=== PATIENT | female | born 1970 | race Caucasian/White ===

== ENCOUNTER 2023-02-12 18:54 | Emergency (ER) | payer MEDICAID ==
[~2023-02-12] VITALS: Ht 160 cm; Wt 117.5 kg
[2023-02-12 19:10] VITALS: O2SAT 100
[2023-02-12] MEDS ORDERED: HYDR25TA MT (22:22)
[2023-02-12] MEDS ORDERED: AMLO5TAB88 MT (22:22)
[2023-02-12 22:46] VITALS: BP 171/98; PULSE 98; RESP 16; TEMP 98.2
== END 2023-02-12 22:48 | disposition home or self-care (01) ==
LOC: ER 18:54
DX: R51.9 Headache, unspecified (principal); I10 Essential (primary) hypertension; Z98.890 Other specified postprocedural states
CPT/HCPCS: 99283

== ENCOUNTER 2023-02-28 15:15 | Emergency (ER) | payer MEDICAID ==
[~2023-02-28] VITALS: Ht 165.1 cm; Wt 104.0 kg
[~2023-02-28 15:15] MED LIST: AMLO5TAB88 MT; HYDR25TA MT
[2023-02-28 15:33] VITALS: TEMP 98.6; O2SAT 97
[2023-02-28] MEDS ORDERED: AMLODIPINE 5MG TABLET PO ONE (16:00)
[2023-02-28 16:23] LABS: CLARITY URINE CLEAR (CLEAR); COLOR URINE YELLOW (YELLOW); GLUCOSE URINE NEGATIVE (NEGATIVE); KETONES URINE NEGATIVE (NEGATIVE); LEUKOCYTE ESTERASE URINE NEGATIVE (NEGATIVE); NITRITE URINE NEGATIVE (NEGATIVE); OCCULT BLOOD URINE NEGATIVE (NEGATIVE); PROTEIN URINE NEGATIVE (NEGATIVE); SPECIFIC GRAVITY URINE 1.006 (1.005-1.030); UROBILINOGEN URINE 0.2 E.U./dL (0.2-1.0)
[2023-02-28 16:35] LABS: BASOPHILS % 0.6 % (0.0-2.0); EOSINOPHILS % 2.8 % (0.0-5.0); HEMATOCRIT. 40.9 % (36.0-48.0); HEMOGLOBIN. 13.9 g/dL (12.0-16.0); LYMPHOCYTES % 30.1 % (20.0-50.0); MEAN CORPUSCULAR HEMOGLOBIN 28.8 pg (28.0-32.0); MEAN CORPUSCULAR HGB CONC 33.9 g/dL (31.0-37.0); MEAN PLATELET VOLUME 7.6 fl (7.4-10.4); MONOCYTES % 7.3 % (2.0-8.0); NEUTROPHILS % 59.2 % (40.0-76.0); PLATELET 362 x1000/uL (130-400); RED BLOOD CELL COUNT 4.81 mill/uL (4.2-5.4); RED CELL DISTRIBUTION WIDTH 14.2 % (11.6-14.6); WHITE BLOOD COUNT 8.4 x1000/uL (4.5-11.0)
[2023-02-28 16:48] LABS: ALANINE AMINOTRANSFERASE 35 IU/L (10-49); ALBUMIN 4.4 g/dL (3.2-4.8); ASPARTATE AMINOTRANSFERASE 29 IU/L (<34); BILIRUBIN TOTAL 0.4 mg/dL (0.1-1.0); CALCIUM 9.2 mg/dL (8.7-10.4); CARBON DIOXIDE 25 mEq/L (21-32); CHLORIDE 99 mEq/L (98-107); CREATININE 0.6 mg/dL (0.6-1.0); GLUCOSE 130 mg/dL (70-105); SODIUM 132 mEq/L (136-145); UREA NITROGEN BLOOD 9 mg/dL (9-23)
[2023-02-28] MEDS ORDERED: POTASSIUM CHLORIDE 20MEQ/PACKET PO ONE (21:00)
[2023-02-28] MEDS ORDERED: AMLO5TAB4 MT (21:02)
[2023-02-28] MEDS ORDERED: POTASSIUM CHLORIDE 20MEQ/PACKET PO NR (21:30)
[2023-02-28] MEDS: AMLODIPINE 5MG TABLET PO NR ×2 (21:44→21:47)
[2023-02-28 21:48] VITALS: BP 153/98; PULSE 98; RESP 16
== END 2023-02-28 21:50 | disposition home or self-care (01) ==
LOC: ER 15:15
DX: I16.0 Hypertensive urgency (principal); Z98.890 Other specified postprocedural states
CPT/HCPCS: 36415; 80053; 81003; 81025; 85025; 93005; 99284